=== PATIENT | female | born 1955 | race Caucasian/White ===

== ENCOUNTER 2018-12-04 07:24 | Emergency (ER) | payer BC ==
[2018-12-04 07:36] VITALS: BP 140/85
--- NOTE | 2018-12-04 07:47 | UC ---
Knee Pain HPI - HPI Summary HPI Summary: 63 yo, fell directly onto left knee yesterday when she tripped on uneven pavement, with gradual increase in suprapatellar swelling over the last day, with difficulty weight bearing. Past right knee meniscectomy by Dr. Hernández several years ago and would like follow up to be with him. - History of Current Complaint Chief Complaint: UCLowerExtremity Stated Complaint: KNEE INJURY Time Seen by Provider: 12/04/18 07:41 Hx Obtained From: Patient Onset/Duration: Sudden Onset, Lasting Days - 1 Severity Initially: Moderate Severity Currently: Moderate Pain Intensity: 3 Character: Aching, Stiffness Aggravating Factor(s): Weight Bearing Alleviating Factor(s): Rest, Position, Cold, OTC Meds - took 400mg of ibuprofen last evening. Associated Signs And Symptoms: Positive: Swelling Able to Bear Weight: No - Risk Factors Septic Arthritis Risk Factor: Negative Gout Risk Factor: Negative - Allergies/Home Medications Allergies/Adverse Reactions: Allergies Allergy/AdvReac Type Severity Reaction Status Date / Time cephalexin Allergy Nausea Verified 12/04/18 07:40 tetracycline Allergy Rash Verified 12/04/18 07:40 Home Medications: Home Medications Cholecalciferol CAP/TAB(NF) [Vitamin D3 CAP/TAB (NF)] 2,000 mg PO DAILY [History Confirmed 12/04/18] PMH/Surg Hx/FS Hx/Imm Hx Previously Healthy: Yes - overweight Cardiovascular History: Hypertension GI/ History: Kidney Stones - Surgical History Surgical History: Yes Surgery Procedure, Year, and Place: COMPLETE HYSTERECTOMY; LITHOTRIPSY X 2; TMJ SURGERY, R knee surgery - Social History Occupation: Retired Lives: With Family Alcohol Use: Occasionally Substance Use Type: None Smoking Status (MU): Never Smoked Tobacco Review of Systems All Other Systems Reviewed And Are Negative: Yes Constitutional: Positive: Negative Respiratory: Positive: Negative Cardiovascular: Positive: Other - blood pressure usually well controlled.. Negative: Chest Pain Gastrointestinal: Positive: Negative Motor: Positive: Decreased ROM Musculoskeletal: Positive: Arthralgia Neurological: Positive: Negative Psychological: Positive: Negative Is Patient Immunocompromised?: No Physical Exam Triage Information Reviewed: Yes Appearance: Well-Appearing, Pain Distress - mild while seated. Vital Signs: Initial Vital Signs Temp 97.8 F 12/04/18 07:31 Pulse 87 12/04/18 07:31 Resp 14 10/09/19 07:31 BP 140/85 12/04/18 07:31 Pulse Ox 97 12/04/18 07:31 ENT: Positive: Normal ENT inspection Respiratory: Positive: Lungs clear, Normal breath sounds Cardiovascular: Positive: RRR, No Murmur Musculoskeletal Exam: Other - + moderate tense swelling superior and lateral to patella. No joint line tenderness Musculoskeletal: Positive: ROM Limited @ - right knee with limited flexion, active to about 90 degrees. Lacks full extension. Exam limited by the amount of swelling in the knee. Neurological Exam: Normal Neurological: Positive: Alert, Muscle Tone Normal Diagnostics - Laboratory Lab Results: Per Dr. Hernández, large effusion right knee, no fracture seen. Knee Pain Course/Dx - Course Course Of Treatment: Crutches for assistance, LUDA wrap, follow up with Dr. Hernández requested. Will use acetaminophen for control of pain. - Differential Dx/Diagnosis Differential Diagnosis/HQI/PQRI: Contusion, Sprain, Strain Provider Diagnosis: Contusion of right knee Discharge ED - Sign-Out/Discharge Documenting (check all that apply): Patient Departure All imaging exams completed and their final reports reviewed: Yes - Discharge Plan Condition: Good Disposition: HOME Patient Education Materials: Knee Sprain (ED) Referrals: Shikha Bejarano MD [Primary Care Provider] - Tyrell Hernández MD [Medical Doctor] - Additional Instructions: Blood pressure was elevated to 140/85 today; please ensure that you recheck your blood pressure and follow up with Dr. Bejarano if it remains elevated. At this time, rest and ice the knee regularly to decrease swelling. Follow up referral to Dr. Hernández has been made. Please call his office to arrange an evaluation within the next week. - Billing Disposition and Condition Condition: GOOD Disposition: Home
== END 2018-12-04 08:30 | disposition home or self-care (01) ==
LOC: UCEAST 07:24
DX: S80.01XA Contusion of right knee, initial encounter (principal); I10 Essential (primary) hypertension; Z98.890 Other specified postprocedural states; Z88.1 Allergy status to other antibiotic agents; W01.0XXA Fall on same level from slipping, tripping and stumbling without subsequent striking against object, initial encounter; Y92.9 Unspecified place or not applicable
CPT/HCPCS: 99213; G0463